=== PATIENT | male | born 1990 | race Caucasian/White ===

== ENCOUNTER 2016-06-25 13:03 | Emergency (ER) | payer OTHER ==
--- NOTE | 2016-06-25 13:05 | PDOC ---
History of Present Illness - General Chief Complaint: Pain, Acute Stated Complaint: RIGHT SHOULD PAIN Time Seen by Provider: 06/25/16 13:05 - History of Present Illness Initial Comments: 06/25/16 14:24 Chief complaint: Right shoulder pain History of present illness: Patient has chronic shoulder instability with frequent dislocations. He was throwing a ball yesterday and felt his shoulder, out of place. He has had persistent pain since then. Review of systems: Denies distal numbness tingling pain or weakness. Denies any other injuries. Past medical history: Recurrent shoulder dislocations, status post surgery several years ago. Otherwise healthy Social/family history reviewed and noncontributory Physical exam: Alert and oriented well-developed well-nourished no acute distress cooperative Afebrile, vital signs normal Right shoulder: There is no deformity noted. There is full range of motion, minimal pain at the extremes of abduction and extension. Pulses are full. No distal sensory or motor deficits. No localizing point tenderness. X-ray: Negative for fracture/dislocation. Hardware in place Impression: Shoulder sprain, possible transient dislocation with spontaneous relocation and subsequent inflammation. No fracture or dislocation at present Plan: Rest, ice, gentle range of motion exercises, avoid reaching backwards, anti-inflammatories, muscle relaxants, and orthopedic follow-up. Patient in no acute distress, pain, or other discomfort upon discharge to follow-up as directed. Fully ambulatory Past History - Past Medical History Allergies/Adverse Reactions: Allergies Allergy/AdvReac Type Severity Reaction Status Date / Time ketorolac tromethamine Allergy Verified 06/25/16 13:04 [From Toradol] Penicillins Allergy Verified 06/25/16 13:04 Home Medications: Ambulatory Orders Cyclobenzaprine HCl [Flexeril] 10 mg PO TID #15 tablet 06/25/16 Naproxen Sodium 275 mg PO BID #20 tablet 06/25/16 Trazodone HCl [Desyrel -] 150 mg PO HS 06/25/16 *DC/Admit/Observation/Transfer Diagnosis at time of Disposition: Shoulder sprain Qualifiers: Encounter type: initial encounter Shoulder sprain type: unspecified sprain Laterality: right Qualified Code(s): S43.401A - Unspecified sprain of right shoulder joint, initial encounter - Discharge Dispostion Disposition: HOME Condition at time of disposition: Stable Admit: No - Prescriptions Prescriptions: Cyclobenzaprine HCl [Flexeril] 10 mg PO TID #15 tablet Naproxen Sodium 275 mg PO BID #20 tablet - Referrals Referrals: Obi Tyson MD [Staff Physician] - 1 week - Patient Instructions Printed Discharge Instructions: DI for Shoulder Sprain
[2016-06-25 13:08] VITALS: BP 123/78; PULSE 80; TEMP 98.3; BMI 18.4
== END 2016-06-25 14:38 | disposition home or self-care (01) ==
LOC: FER 13:03
DX: S43.401A Unspecified sprain of right shoulder joint, initial encounter (principal); X58.XXXA Exposure to other specified factors, initial encounter; Y93.89 Activity, other specified; Y92.9 Unspecified place or not applicable
CPT/HCPCS: 73030-TC-RT; 99282-25

== ENCOUNTER 2016-12-17 11:06 | Emergency (ER) | payer OTHER ==
--- NOTE | 2016-12-17 11:13 | PDOC ---
Attending Attestation - Resident Resident Name: Don Blue - ED Attending Attestation I have performed the following: I have examined & evaluated the patient, The case was reviewed & discussed with the resident, I agree w/resident's findings & plan, Exceptions are as noted (I agree with Dr. Blue's assessment & plan.) - HPI HPI: 12/17/16 15:26 Pt. is a 26 yo male, who presents to the ED s/p falling 10 feet off ladder and landing on his lumbar-sacral region, and hitting a tree post. Pt reports associated back pain and pain to the right shoulder with very limited ROM, although his right hand is neurovascularly intact. - Physicial Exam PE: 12/17/16 15:28 Pt appears anxious on exam and has marked tenderness to palpation in the lower lumbar region over the bony spine. No bruising, abrasions, or soft tissue swelling. Right shoulder has very limited ROM, so I suspect a dislocation or fracture. <Dann Skinner - Last Filed: 12/17/16 15:26> - Resident Resident Name: Don Blue - ED Attending Attestation I have performed the following: I have examined & evaluated the patient, The case was reviewed & discussed with the resident, I agree w/resident's findings & plan, Exceptions are as noted - Medical Decision Making 12/21/16 06:06 12/21/16 06:[address] Blue's plan <Phuc Rosen - Last Filed: 12/21/16 06:07>
[2016-12-17 11:17] VITALS: BP 133/85; PULSE 97; TEMP 98.3; BMI 19.8
--- NOTE | 2016-12-17 12:40 | PDOC ---
History of Present Illness - General Chief Complaint: Injury Stated Complaint: FELL OFF LADDER Time Seen by Provider: 12/17/16 11:12 History Source: Patient - History of Present Illness Initial Comments: 12/17/16 12:34 26M with pmh of right shoulder fracture and repair 15 years ago, present after fall ladder while cleaning gutter from 10 height of feet onto a flat 10cm diameter tree stump of about 10cm high above the ground and grass. Patient fell flat on his back with the stump hitting his lumbar area. Denies LOC or hitting his head but states that his right shoulder got externally rotated and is currently painful. Right arm is kept closed to the body with elbow flexed at 90 degrees. The patient complains mostly of point tenderness 10/10 over L4 region. After the fall, the patient got up and tried urinating but complained of dribbling and dysuria. 12/17/16 12:46 12/17/16 16:06 Past History - Past Medical History Allergies/Adverse Reactions: Allergies Allergy/AdvReac Type Severity Reaction Status Date / Time ketorolac tromethamine Allergy Verified 12/17/16 11:07 [From Toradol] Penicillins Allergy Verified 12/17/16 11:07 Home Medications: Ambulatory Orders Gabapentin 100 mg PO DAILY 12/17/16 Ondansetron HCl [Zofran] 4 mg PO PRN PRN #14 tablet 12/17/16 Oxycodone HCl/Acetaminophen [Percocet 5-325 mg Tablet] 1 tab PO Q6H #16 tablet MDD 4g 12/17/16 Other medical history: NERVE PAIN - Psycho/Social/Smoking Cessation Hx Anxiety: No Suicidal Ideation: No Smoking History: Never smoked Have you smoked in the past 12 months: No Information on smoking cessation initiated: No Hx Alcohol Use: No Drug/Substance Use Hx: No Substance Use Type: None Review of Systems - Review of Systems Able to Perform ROS?: Yes Constitutional: No: Chills, Diaphoresis HEENTM: No: Blurred Vision, Recent change in vision Respiratory: No: Cough, Shortness of Breath, Wheezing Cardiac (ROS): No: Chest Pain, Edema, Irregular Heart Rate, Lightheadedness, Palpitations ABD/GI: Yes: Nausea. No: Abdominal Distended Musculoskeletal: Yes: See HPI. No: Joint Swelling Integumentary: Yes: Bruising *Physical Exam - Vital Signs Last Vital Signs Temp Pulse Resp BP Pulse Ox 98.3 F 97 H 20 133/85 100 12/17/16 11:07 12/17/16 11:07 12/17/16 11:07 12/17/16 11:07 12/17/16 11:07 - Physical Exam General Appearance: Yes: Nourished, Appropriately Dressed, Mild Distress, Thin HEENT: positive: EOMI, MAYANK, Normal ENT Inspection Neck: positive: Trachea midline. negative: Tender Respiratory/Chest: positive: Lungs Clear, Normal Breath Sounds. negative: Chest Tender, Respiratory Distress Cardiovascular: positive: Regular Rhythm, Regular Rate, S1, S2 ED Treatment Course - RADIOLOGY Radiology Studies Ordered: Category Date Time Status ABDOMEN & PELVIS CT W/O CONTR [CT] Stat CT Scan 12/17/16 11:[address] W/O CONTRAST [CT] Stat CT Scan 12/17/16 11:31 Taken SHOULDER-RIGHT [RAD] Stat Radiology 12/17/16 11:31 Taken SPINE-LUMBAR ONLY [RAD] Stat Radiology 12/17/16 11:31 Taken - Medications Given in the ED: ED Medications Discontinued Medications Generic Name Dose Route Start Last Admin Trade Name Freq PRN Reason Stop Dose Admin Oxycodone/Acetaminophen 1 combo 12/17/16 11:35 12/17/16 12:01 Percocet 5/325 - PO 12/17/16 11:36 1 combo ONCE ONE Administration Medical Decision Making - Medical Decision Making 12/17/16 16:06 26M present after fall from ladder with R shoulder pain and lumbar pain. Right shoulder xray and CT shows humeral subluxation. Lumbar negative, no fracture labs and lytes negative. UA negative. Talked to Dr. Robison othopedic surgeon who advised sling and outpatient visit. pain control with percocet + zofran. pt given imaging cd's *DC/Admit/Observation/Transfer Diagnosis at time of Disposition: Subluxation of right shoulder joint - Discharge Dispostion Disposition: HOME Condition at time of disposition: Stable Admit: No - Prescriptions Prescriptions: Oxycodone HCl/Acetaminophen [Percocet 5-325 mg Tablet] 1 tab PO Q6H #16 tablet MDD 4g Ondansetron HCl [Zofran] 4 mg PO PRN PRN #14 tablet PRN Reason: Nausea - Patient Instructions Printed Discharge Instructions: DI for Shoulder Dislocation, DI for Shoulder Sprain - Post Discharge Activity Work/School Note: Back to Work
[2016-12-17] MEDS ORDERED: ONDANSETRON *ODT* 4 MG TABLET SL ONE (12:44)
[2016-12-17] MEDS ORDERED: ONDANSETRON *ODT* 4 MG TABLET ONE (13:12)
[2016-12-17 13:21] LABS: PH,URINE 5.5 (4.5-8); URINE APPEARANCE Clear; URINE BILIRUBIN Negative (NEGATIVE); URINE BLOOD Negative (NEGATIVE); URINE GLUCOSE (UA) Negative (NEGATIVE); URINE KETONE Negative (NEGATIVE); URINE LEUK ESTERASE Negative (NEGATIVE); URINE PROTEIN Negative (NEGATIVE); URINE UROBILINOGEN 0.2 (0.2-1.0)
[2016-12-17 13:23] LABS: URINE COLOR YELLOW
[2016-12-17 13:58] LABS: URINE NITRITE Positive (NEGATIVE)
[2016-12-17] MEDS ORDERED: ONDANSETRON 4 MG TABLET PO ONE (16:15)
== END 2016-12-17 16:35 | disposition home or self-care (01) ==
LOC: FER 11:06
DX: S43.001A Unspecified subluxation of right shoulder joint, initial encounter (principal); W17.89XA Other fall from one level to another, initial encounter; Y93.89 Activity, other specified; Y92.9 Unspecified place or not applicable; Z88.0 Allergy status to penicillin; Z88.6 Allergy status to analgesic agent
CPT/HCPCS: 72100-TC; 72131-TC; 73030-TC-RT; 73200-TC-RT; 74176-TC; 81003; 99282-25

== ENCOUNTER 2016-12-24 13:04 | Emergency (ER) | payer OTHER ==
[2016-12-24 13:07] VITALS: BP 153/95; PULSE 90; TEMP 98; BMI 19.8
[2016-12-24] MEDS ORDERED: ONDANSETRON 4 MG TABLET PO ONE (13:35)
--- NOTE | 2016-12-24 13:37 | PDOC ---
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 [place] overextended yesterday. Right- sided pain shoulder and mild hematoma over R triceps. Claims his friends tried to "put shoulder back into place" unsuccessfully. Additionally complains of nausea. Pain upon any movement of the right arm. Patient asking for narcotic. 12/24/16 14:59 Past History - Past Medical History Allergies/Adverse Reactions: Allergies Allergy/AdvReac Type Severity Reaction Status Date / Time ketorolac tromethamine Allergy Verified 12/24/16 13:07 [From Toradol] Penicillins Allergy Verified 12/24/16 13:07 Home Medications: Ambulatory Orders Gabapentin 100 mg PO DAILY 12/17/16 Ondansetron HCl [Zofran] 4 mg PO PRN PRN #14 tablet 12/17/16 Oxycodone HCl/Acetaminophen [Percocet 5-325 mg Tablet] 1 tab PO Q6H #16 tablet MDD 4g 12/17/16 - Psycho/Social/Smoking Cessation Hx Anxiety: No Suicidal Ideation: No Smoking History: Never smoked Have you smoked in the past 12 months: No Information on smoking cessation initiated: No Hx Alcohol Use: No Drug/Substance Use Hx: No Substance Use Type: None *Physical Exam - Vital Signs Last Vital Signs Temp Pulse Resp BP Pulse Ox 98 F 90 18 153/95 100 12/24/16 13:05 12/24/16 13:05 12/24/16 13:05 12/24/16 13:05 12/24/16 13:05 ED Treatment Course - RADIOLOGY Radiology Studies Ordered: Category Date Time Status SHOULDER-RIGHT [RAD] Stat Radiology 12/24/16 13:19 Ordered Medical Decision Making - Medical Decision Making 12/24/16 15:09 26M with chronic R shoulder subluxation and repairs comes to the ED complaining of pain in the R shoulder, requires pain management with "Tramadol". R shoulder X-ray: " Anterior subluxation of humeral head in relation to the glenoid fossa unchanged from December 17, 2016." Patient states to his Orthopedic surgeon seen years ago suggested fixing his shoulder with a fusion which the patient refuses because he wont be able to ever play hockey. Patient asked if he was able to play hockey now, to which the patient responded "no'. Dr. Lynch suggested the patient gets a second opinion at [facility]. After the patient was about to get discharged he asked for a Tramadol prescription. Confronted with his Confidential Drug Utilization Report from the Prescription Monitoring Program Registry, patient said "i know i should use narcotics that's why im doing rehab" I counseled the patient on the dangers of opoid addiction and that he should seek permanent treatment for his shoulder pain. Patient then lost his temper and got emotional saying "If you didn't want me to get addicted doctors shouldn't have prescribed so many narcotics for my shoulder when i first broke it. I don't need discharge papers i'm leaving. Patient then left the ED. 12/24/16 15:15 *DC/Admit/Observation/Transfer Diagnosis at time of Disposition: Recurrent subluxation of shoulder - Discharge Dispostion Disposition: ELOPED Admit: No - Patient Instructions Printed Discharge Instructions: DI for Shoulder Dislocation, DI for Opioid Addiction
[2016-12-24] MEDS ORDERED: ONDANSETRON *ODT* 4 MG TABLET ONE (13:40)
--- NOTE | 2016-12-24 14:52 | PDOC ---
Attending Attestation - Resident Resident Name: SuDon - ED Attending Attestation I have performed the following: I have examined & evaluated the patient, The case was reviewed & discussed with the resident, I agree w/resident's findings & plan, Exceptions are as noted - HPI HPI: 26 yo M history prior shoulder surgeries presents with R shoulder pain. He states that he fell onto the R arm while it was extended, now with shoulder pain. He has had multiple shoulder dislocations in the past, has required surgical fixation. He was seen in the ED a few weeks ago with similar symptoms. No weakness or numbness. - Physicial Exam PE: GENERAL: Awake, alert, and fully oriented, in no acute distress HEAD: No signs of trauma EYES: PERRLA, EOMI, sclera anicteric, conjunctiva clear ENT: Auricles normal inspection, hearing grossly normal, nares patent, oropharynx clear without exudates. Moist mucosa NECK: Normal ROM, supple, no lymphadenopathy, JVD, or masses EXTREMITIES: R shoulder with slight defect at the posterior glenohumeral joint. Remainder of joints with normal range of motion, no edema. No clubbing or cyanosis. No cords, erythema, or tenderness NEUROLOGICAL: Cranial nerves II through XII grossly intact. Normal speech, normal gait SKIN: Warm, Dry, normal turgor, no rashes or lesions noted. - Medical Decision Making XR obtained, c/w prior film. No acute dislocation. Recommended sling and outpatient ortho f/u.
== END 2016-12-24 15:13 | disposition left against medical advice (07) ==
LOC: JER 13:04
DX: M24.411 Recurrent dislocation, right shoulder (principal); Z88.0 Allergy status to penicillin; Z88.6 Allergy status to analgesic agent
CPT/HCPCS: 73030-TC-RT; 99282-25

== ENCOUNTER 2017-05-06 15:02 | Emergency (ER) | payer OTHER ==
[2017-05-06 15:08] VITALS: BP 143/102; PULSE 110; TEMP 98; BMI 19.8
--- NOTE | 2017-05-06 15:09 | PDOC ---
Rapid Medical Evaluation Time Seen by Provider: 05/06/17 15:03 Medical Evaluation: Allergies Allergy/AdvReac Type Severity Reaction Status Date / Time ketorolac tromethamine Allergy Verified 12/24/16 13:07 [From Toradol] Penicillins Allergy Verified 12/24/16 13:07 05/06/17 15:07 I have performed a brief in-person evaluation of this patient. This patient presents with a chief complaint of: right shoulder pain x 2 hours. States had an accident while skateboarding complaining of pain with movement of right arm. States numbness to right 2nd digit Pertinenet physical exam findings: unlabored breathing right arm slightly elongated, pain with movement of right arm I have ordered the following: xray of right arm This patient will proceed to the ED for further evaluation 05/06/17 15:07
[2017-05-06] MEDS ORDERED: SODIUM CHLORIDE 1,000 ML IV ONE (16:02)
[2017-05-06] MEDS ORDERED: ACETAMINOPHEN 500 MG TABLET (FP) PO ONE (16:20)
[2017-05-06] MEDS ORDERED: ACETAMINOPHEN 325 MG TABLET (FP) ONE (16:28)
--- NOTE | 2017-05-06 16:34 | PDOC ---
Attending Attestation - Resident Resident Name: Jose Peterson - ED Attending Attestation I have performed the following: I have examined & evaluated the patient, The case was reviewed & discussed with the resident, I agree w/resident's findings & plan, Exceptions are as noted - HPI HPI: 05/06/17 16:25 27-year-old male with history of anxiety presents with shoulder injury while playing hockey. Patient states he fell on the hockey rink, reports another players skate struck his right shoulder causing a laceration and injury, presents for evaluation. Has history of right shoulder surgeries with chronic anterior subluxation per prior reports, denies any sensory deficit but reports some difficulty ranging his right shoulder since the injury. Denies any other injury. Initially triaged to fast track for injury/laceration but then noted gross hematuris in bathroom, so brought to main ED. Pt states he was "checked into a board" during the game but denies any other fall/injury. Reports h/o UTI/cystitis with hematuria, no f/c/flank pain. Multiple questions asked to clarify the mechanism of injury. Adamant that this was a hockey injury, that this was not assault or stab. - Physicial Exam PE: 05/06/17 16:30 Vital signs within normal limits, mild tachycardia General: Patient is alert and in no acute distress. Speech is clear and appropriate. Head: Atraumatic and nontender. HEENT: Pupils are equal round and reactive to light, extraocular movements are intact. No facial deformity/tenderness, no septal hematoma. The oropharynx is clear. Neck: The trachea is midline, there is no stridor. There is no midline cervical spine tenderness, full range of motion of neck. Chest: Nontender, no ecchymosis or abrasions. Heart: S1-S2, regular rate and rhythm. No murmurs. Lungs: Clear to auscultation bilaterally. Symmetric chest rise. Abdomen: Soft/nontender/nondistended. ? mild LUQ discomfort, no CVAT. Bowel sounds are normal. There is no abdominal or flank ecchymosis. No urethral injury or discharge or bleeding. Back/Pelvis: There is no midline spine tenderness or step-off. Pelvis is stable and nontender. Extremities: Chronic R shoulder deformity but able to lay on it and range actively. NVI distally, sensation intact over deltoid. There is no other extremity deformity or joint swelling. No focal bony tenderness throughout. 2+ distal pulses throughout. Neuro: Alert and oriented x3. Cranial nerves II through XII are intact. 5 out of 5 motor strength x4 extremities. [id number] is intact. No pronator drift. Gait is stable. Skin: R shoulder laceration x2. Linear x6cm, one is deep through dermis without muscle or tendon injury. Second is more superficial to dermis. No active bleeding. Superficial and healing 1st degree burn to neck x5mm and chest x6cm. Psych: Slightly pressured speech, Affect is otherwise appropriate. No SI/HI/AH/ VH. - Critical Care Time Total Critical Care Time: 30 Critical Care Statement: The care of this patient involved high complexity decision making to prevent further life threatening deterioration of the patient 's condition and/or to evaluate & treat vital organ system(s) failure or risk of failure. - Medical Decision Making 05/06/17 16:34 Patient seen and evaluated with the resident. I agree with the overall evaluation, assessment, and management with the following summary of visit: 27-year-old male with history of anxiety and right shoulder dislocation presents with laceration to right shoulder and gross hematuria in [facility]. The patient's history is inconsistent, now reporting that the laceration was yesterday, now reporting that he does have a history of gross hematuria secondary to "foreign body" in his urethra that needed to be extracted, requesting Dilaudid. Presentation is concerning given his inconsistent history and opiate requests. full trauma workup ordered but history is less concerning at this time shoulder xray with unchanged anterior subluxation, no fracture send UA, pt currently refusing labs/imaging until he receives dilaudid lac repair, update dt reassess
[2017-05-06 16:52] LABS: BASO % 0.8 % (0-2.0); EOS % 1.5 % (0-4.5); MCH 29.4 pg (25.7-33.7); MCHC 34.2 g/dl (32.0-35.9); MEAN CELL VOLUME 86.1 fl (80-96); MEAN PLT VOLUME 8.9 fl (7.5-11.1); NEUT % 64.8 % (42.8-82.8); PLATELET COUNT 252 K/MM3 (134-434); RDW 12.9 % (11.9-15.9); WHITE BLOOD COUNT 7.9 K/mm3 (4.0-10.0)
[2017-05-06] MEDS ORDERED: HYDROmorphone HCL CARPU-JECT 1 MG/1 ML DISP.SYRIN IVPUSH ONE (17:07)
[2017-05-06 17:08] LABS: INR 1.17 (0.82-1.09); PROTHROMBIN TIME (PATIENT) 13.2 SEC (9.98-11.88)
[2017-05-06] MEDS ORDERED: HYDROmorphone HCL CARPU-JECT 1 MG/1 ML DISP.SYRIN ONE (17:09)
[2017-05-06 17:20] LABS: URINE APPEARANCE SLCLOUDY; URINE BILIRUBIN NEGATIVE (NEGATIVE); URINE BLOOD 3+ (NEGATIVE); URINE COLOR RED; URINE GLUCOSE (UA) 1+ (NEGATIVE); URINE KETONE NEGATIVE (NEGATIVE); URINE LEUK ESTERASE NEGATIVE (NEGATIVE); URINE NITRITE NEGATIVE (NEGATIVE); URINE UROBILINOGEN NEGATIVE mg/dL (0.2-1.0)
[2017-05-06 17:21] LABS: URINE PROTEIN 2+ (NEGATIVE)
[2017-05-06 17:26] LABS: URINE RBC 37 /hpf (0-3)
[2017-05-06 17:45] LABS: ALBUMIN 4.6 g/dl (3.4-5.0); ANION GAP 7 (8-16); CALCIUM 9.3 mg/dL (8.5-10.1); CO2 24 mmol/L (21-32); GLUCOSE,RANDOM 104 mg/dL (74-106); MAGNESIUM 2.5 mg/dL (1.8-2.4)
[2017-05-06 17:51] LABS: ALK PHOS 121 U/L (45-117); BILIRUBIN,TOTAL 0.4 mg/dL (0.2-1.0); CREATININE 0.8 mg/dL (0.7-1.3); SGOT/AST 17 U/L (15-37); SGPT/ALT 27 U/L (12-78)
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
--- NOTE | 2017-05-06 19:19 | PDOC ---
*Physical Exam - Vital Signs Last Vital Signs Temp Pulse Resp BP Pulse Ox 98 F 110 H 19 143/102 99 05/06/17 15:05 05/06/17 15:05 05/06/17 15:05 05/06/17 15:05 05/06/17 15:05 ED Treatment Course - LABORATORY CBC & Chemistry Diagram: 05/06/17 16:30 05/06/17 16:30 - ADDITIONAL ORDERS Additional order review: Laboratory Results 05/06/17 05/06/17 05/06/17 16:30 16:30 16:30 PT with INR INR Sodium 138 Potassium 3.9 Chloride 107 Carbon Dioxide 24 Anion Gap 7 L BUN 22 H Creatinine 0.8 Creat Clearance w eGFR > 60 Random Glucose 104 Lactic Acid 0.5 Calcium 9.3 Magnesium 2.5 H Total Bilirubin 0.4 AST 17 ALT 27 Alkaline Phosphatase 121 H Total Protein 8.0 Albumin 4.6 Lipase 577 H Urine Color Urine Appearance Urine pH Ur Specific [place] Urine Protein Urine Glucose (UA) Urine Ketones Urine Blood Urine Nitrite Urine Bilirubin Urine Urobilinogen Urine WBC (Auto) Urine RBC (Auto) Blood Type B POSITIVE Antibody Screen Negative 05/06/17 05/06/17 16:30 16:18 PT with INR 13.20 H INR 1.17 H Sodium Potassium Chloride Carbon Dioxide Anion Gap BUN Creatinine Creat Clearance w eGFR Random Glucose Lactic Acid Calcium Magnesium Total Bilirubin AST ALT Alkaline Phosphatase Total Protein Albumin Lipase Urine Color Red Urine Appearance Slcloudy Urine pH 7.0 Ur Specific [place] 1.023 Urine Protein 2+ H Urine Glucose (UA) 1+ H Urine Ketones Negative Urine Blood 3+ H Urine Nitrite Negative Urine Bilirubin Negative Urine Urobilinogen Negative Urine WBC (Auto) None Urine RBC (Auto) 37 Blood Type Antibody Screen 05/06/17 16:30 RBC 4.84 MCV 86.1 MCHC 34.2 RDW 12.9 MPV 8.9 Neutrophils % 64.8 Lymphocytes % 27.3 Monocytes % 5.6 Eosinophils % 1.5 Basophils % 0.8 - Medications Given in the ED: ED Medications Discontinued Medications Generic Name Dose Route Start Last Admin Trade Name Freq PRN Reason Stop Dose Admin Acetaminophen 1,000 mg 05/06/17 16:20 05/06/17 16:26 Tylenol - PO 05/06/17 16:21 1,000 mg ONCE ONE Administration Hydromorphone HCl 1 mg 05/06/17 17:07 05/06/17 17:08 Dilaudid Injection - IVPUSH 05/06/17 17:08 1 mg ONCE ONE Administration Sodium Chloride 1,000 mls @ 1,000 mls/hr 05/06/17 16:02 05/06/17 16:26 Normal Saline - IV 05/06/17 17:01 1,000 mls/hr ONCE ONE Administration Medical Decision Making - Medical Decision Making 05/06/17 19:15 Patient was signed out to me by day team, Dr. Peterson. The patient is a 27M with a PMH of shoulder dislocations requiring surgery who presents with a R shoulder dislocation and laceration. CTAP is negative for renal pathology. UA shows gross blood with no infectious etiology. Pt advised to f/u with urology (Dr. Russell) for his hematuria. *DC/Admit/Observation/Transfer Diagnosis at time of Disposition: Shoulder subluxation, right Qualifiers: Encounter type: sequela Qualified Code(s): S43.001S - Unspecified subluxation of right shoulder joint, sequela Recurrent subluxation of shoulder Qualifiers: Laterality: right Qualified Code(s): M24.411 - Recurrent dislocation, right shoulder - Discharge Dispostion Disposition: HOME Condition at time of disposition: Stable - Referrals Referrals: Wero Robles MD., MD [Staff Physician] - - Patient Instructions Printed Discharge Instructions: DI for Laceration Repair Additional Instructions: Please be sure to follow up with your Urologist (Dr. Robles) within 3 days. Please make sure you see your doctor to have your stitches removed within 1 week. Keep your wound clean and dry. Please take all your prescription medications as directed. Please return to the Emergency department if you develop new symptoms or if your symptoms get worse. - Post Discharge Activity
[2017-05-06] MEDS ORDERED: traMADol HCL 50 MG TABLET PO ONE (19:51)
--- NOTE | 2017-05-06 20:05 | PDOC ---
*Physical Exam - Vital Signs Last Vital Signs Temp Pulse Resp BP Pulse Ox 98 F 110 H 19 143/102 99 05/06/17 15:05 05/06/17 15:05 05/06/17 15:05 05/06/17 15:05 05/06/17 15:05 ED Treatment Course - LABORATORY CBC & Chemistry Diagram: 05/06/17 16:30 05/06/17 16:30 - ADDITIONAL ORDERS Additional order review: Laboratory Results 05/06/17 05/06/17 05/06/17 16:30 16:30 16:30 PT with INR INR Sodium 138 Potassium 3.9 Chloride 107 Carbon Dioxide 24 Anion Gap 7 L BUN 22 H Creatinine 0.8 Creat Clearance w eGFR > 60 Random Glucose 104 Lactic Acid 0.5 Calcium 9.3 Magnesium 2.5 H Total Bilirubin 0.4 AST 17 ALT 27 Alkaline Phosphatase 121 H Total Protein 8.0 Albumin 4.6 Lipase 577 H Urine Color Urine Appearance Urine pH Ur Specific [place] Urine Protein Urine Glucose (UA) Urine Ketones Urine Blood Urine Nitrite Urine Bilirubin Urine Urobilinogen Urine WBC (Auto) Urine RBC (Auto) Blood Type B POSITIVE Antibody Screen Negative 05/06/17 05/06/17 16:30 16:18 PT with INR 13.20 H INR 1.17 H Sodium Potassium Chloride Carbon Dioxide Anion Gap BUN Creatinine Creat Clearance w eGFR Random Glucose Lactic Acid Calcium Magnesium Total Bilirubin AST ALT Alkaline Phosphatase Total Protein Albumin Lipase Urine Color Red Urine Appearance Slcloudy Urine pH 7.0 Ur Specific [place] 1.023 Urine Protein 2+ H Urine Glucose (UA) 1+ H Urine Ketones Negative Urine Blood 3+ H Urine Nitrite Negative Urine Bilirubin Negative Urine Urobilinogen Negative Urine WBC (Auto) None Urine RBC (Auto) 37 Blood Type Antibody Screen 05/06/17 16:30 RBC 4.84 MCV 86.1 MCHC 34.2 RDW 12.9 MPV 8.9 Neutrophils % 64.8 Lymphocytes % 27.3 Monocytes % 5.6 Eosinophils % 1.5 Basophils % 0.8 - Medications Given in the ED: ED Medications Discontinued Medications Generic Name Dose Route Start Last Admin Trade Name Freq PRN Reason Stop Dose Admin Acetaminophen 1,000 mg 05/06/17 16:20 05/06/17 16:26 Tylenol - PO 05/06/17 16:21 1,000 mg ONCE ONE Administration Hydromorphone HCl 1 mg 05/06/17 17:07 05/06/17 17:08 Dilaudid Injection - IVPUSH 05/06/17 17:08 1 mg ONCE ONE Administration Sodium Chloride 1,000 mls @ 1,000 mls/hr 05/06/17 16:02 05/06/17 16:26 Normal Saline - IV 05/06/17 17:01 1,000 mls/hr ONCE ONE Administration *DC/Admit/Observation/Transfer Diagnosis at time of Disposition: Shoulder subluxation, right Qualifiers: Encounter type: initial encounter Qualified Code(s): S43.001A - Unspecified subluxation of right shoulder joint, initial encounter Recurrent subluxation of shoulder Qualifiers: Laterality: right Qualified Code(s): M24.411 - Recurrent dislocation, right shoulder Hematuria Qualifiers: Hematuria type: gross Qualified Code(s): R31.0 - Gross hematuria - Discharge Dispostion Disposition: HOME Condition at time of disposition: Stable - Referrals Referrals: Wero Robles MD., MD [Staff Physician] - - Patient Instructions Printed Discharge Instructions: DI for Laceration Repair, DI for Hematuria, DI for Shoulder Pain Additional Instructions: Please be sure to follow up with your Urologist (Dr. Robles) within 3 days. Please make sure you see your doctor to have your stitches removed within 1 week. Keep your wound clean and dry. Please take all your prescription medications as directed. Please return to the Emergency department if you develop new symptoms or if your symptoms get worse. - Post Discharge Activity
[2017-05-06] MEDS ORDERED: traMADol HCL 50 MG TABLET ONE (20:12)
[2017-05-06 20:57] LABS: URINE LEUK ESTERASE TRACE (NEGATIVE)
== END 2017-05-06 20:15 | disposition home or self-care (01) ==
LOC: JER 15:02 → JERFT 15:02 → JER 20:15
PROC: 0HQCXZZ Repair Left Upper Arm Skin, External Approach (ICD-10-PCS; principal; 2017-05-06)
DX: S43.004A Unspecified dislocation of right shoulder joint, initial encounter (principal); S43.001A Unspecified subluxation of right shoulder joint, initial encounter; M24.411 Recurrent dislocation, right shoulder; R31.0 Gross hematuria; W18.39XA Other fall on same level, initial encounter; Y93.22 Activity, ice hockey; Y92.330 Ice skating rink (indoor) (outdoor) as the place of occurrence of the external cause
CPT/HCPCS: 12002; 36415; 73030-TC-RT; 74177-TC; 80053; 81003; 81015; 83605; 83690; 83735; 85025; 85610; 86850; 86900; 86901; 96361; 96374; 99284-25

== ENCOUNTER 2017-08-20 16:20 | Emergency (ER) | payer OTHER ==
[2017-08-20 16:39] VITALS: PULSE 98; TEMP 98.1; BMI 21.7
[2017-08-20 16:43] VITALS: BP 117/77
[2017-08-20] MEDS ORDERED: ACETAMINOPHEN 325 MG TABLET (FP) ONE (17:06)
[2017-08-20] MEDS ORDERED: traMADol HCL 50 MG TABLET ONE (17:13)
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
[2017-08-20] MEDS ORDERED: traMADol HCL 50 MG TABLET PO ONE (17:18)
== END 2017-08-20 18:00 | disposition home or self-care (01) ==
LOC: FER 16:20
DX: S43.401A Unspecified sprain of right shoulder joint, initial encounter (principal); S81.812A Laceration without foreign body, left lower leg, initial encounter; V28.4XXA Motorcycle driver injured in noncollision transport accident in traffic accident, initial encounter; Y93.89 Activity, other specified; Y92.9 Unspecified place or not applicable
CPT/HCPCS: 73030-TC-RT-FY; 73560-TC-LT-FY; 99283-25

== ENCOUNTER 2017-08-20 19:33 | Emergency (ER) | payer OTHER ==
[2017-08-20 19:43] VITALS: BP 140/94; PULSE 112; TEMP 97.9; BMI 21.7
--- NOTE | 2017-08-20 19:46 | PDOC ---
Rapid Medical Evaluation Time Seen by Provider: 08/20/17 19:41 Medical Evaluation: Allergies Allergy/AdvReac Type Severity Reaction Status Date / Time acetaminophen Allergy Verified 08/20/17 19:40 ketorolac tromethamine Allergy Hives Verified 08/20/17 19:40 [From Toradol] NSAIDS (Non-Steroidal Allergy Hives Verified 08/20/17 19:40 Anti-Inflamma Penicillins Allergy Verified 08/20/17 19:40 0I have performed a brief in-person evaluation of this patient. The patient presents with a chief complaint of injury to left leg and right side of back 1-2 hours ago when he fell from a ladder Complaining of feeling lightheaded, having pain in right shoulder and pain in left lower leg. Pertinent physical exam finding are NAD lungs: clear bilaterally ext: right shoulder unable to abduct or adduct left lower leg open wound to lower leg : + right cva tenderness I have ordered the following: xray of right shoulder, and left lower leg The patient will proceed to the ED for further evaluation. 08/20/17 19:48
[2017-08-20] MEDS ORDERED: morphine CARPU-JECT 4 MG/1 ML DISP.SYRIN IVPUSH ONE (20:13)
[2017-08-20 20:20] LABS: BASO % 0.7 % (0-2.0); EOS % 2.2 % (0-4.5); HEMATOCRIT 33.8 % (35.4-49); HEMOGLOBIN 11.8 GM/dL (11.7-16.9); LYMPH % 24.4 % (8-40); MCHC 35.1 g/dl (32.0-35.9); MEAN CELL VOLUME 85.5 fl (80-96); MEAN PLT VOLUME 8.4 fl (7.5-11.1); MONO % 5.1 % (3.8-10.2); NEUT % 67.6 % (42.8-82.8); PLATELET COUNT 237 K/MM3 (134-434); RBC 3.95 M/mm3 (4.00-5.60); RDW 14.7 % (11.9-15.9); WHITE BLOOD COUNT 8.3 K/mm3 (4.0-10.0)
[2017-08-20] MEDS ORDERED: morphine SULFATE 4 MG/ML VIAL ONE (20:20)
[2017-08-20 20:53] LABS: INR 1.16 (0.82-1.09); PROTHROMBIN TIME (PATIENT) 13.1 SEC (9.98-11.88)
[2017-08-20 20:55] LABS: ACTIVATED PTT 25.8 SECONDS (26.9-34.4)
[2017-08-20 20:58] LABS: ALBUMIN 4.4 g/dl (3.4-5.0); ALK PHOS 113 U/L (45-117); ANION GAP 9 (8-16); BILIRUBIN,TOTAL 0.2 mg/dL (0.2-1.0); BLOOD UREA NITROGEN 21 mg/dL (7-18); CALCIUM 9.2 mg/dL (8.5-10.1); CHLORIDE 107 mmol/L (98-107); CO2 25 mmol/L (21-32); CREATININE 0.7 mg/dL (0.7-1.3); GLUCOSE,RANDOM 90 mg/dL (74-106); POTASSIUM 3.5 mmol/L (3.5-5.1); SGOT/AST 15 U/L (15-37); SGPT/ALT 16 U/L (12-78); SODIUM 141 mmol/L (136-145); TOT PROT 7.8 g/dl (6.4-8.2)
--- NOTE | 2017-08-20 22:08 | PDOC ---
History of Present Illness - General History Source: Patient Exam Limitations: No Limitations - History of Present Illness Initial Comments: 08/20/17 22:10 The patient is a 27 year old male with significant PMH of shoulder dislocations and anxiety who presents to the emergency department complaining of left salgado laceration, right arm, right flank, and neck pain approximately a half an hour ago. The patient reports falling 15-20 ft from a ladder while trying to change a light bulb. The patient reports previous laceration to left salgado s/p trauma from playing ice hockey ( occurred 2 weeks ago) in which he received fidelina that were removed approximately a week ago. Today at presentation, the previously stapled laceration is open with no active bleeding. Denies taking medication for pain. At presentation, the patient is calm and able to answer questions. Patient notes that he recently finished antibiotics (clindamycin). The patient denies chest pain, shortness of breath, headache, and dizziness. Denies fevers, chills, nausea, vomiting, diarrhea, and constipation. Denies dysuria, frequency, urgency, and hematuria. Allergies: Acetaminophen, Ketorolac tromethamine, and Penicillins. Past surgical history: L-salgado lac. repair. Shoulder dislocation. Social history: No reported cigarette, alcohol, or drug use. <Jimmie Mark - Last Filed: 08/20/17 22:09> <Abi Walter - Last Filed: 08/21/17 01:09> <All Tubbs - Last Filed: 08/21/17 01:36> - General Stated Complaint: INJURY TO RIGHT LEG Time Seen by Provider: 08/20/17 19:41 Past History <Jimmie Mark - Last Filed: 08/20/17 22:09> - Past Medical History COPD: No - Immunization History Immunization Up to Date: Yes - Suicide/Smoking/Psychosocial Hx Smoking History: Never smoked Have you smoked in the past 12 months: No Hx Alcohol Use: No Drug/Substance Use Hx: No Substance Use Type: None <Abi Walter - Last Filed: 08/21/17 01:09> <All Tubbs - Last Filed: 08/21/17 01:36> - Past Medical History Allergies/Adverse Reactions: Allergies Allergy/AdvReac Type Severity Reaction Status Date / Time acetaminophen Allergy Verified 08/20/17 19:40 ketorolac tromethamine Allergy Hives Verified 08/20/17 19:40 [From Toradol] NSAIDS (Non-Steroidal Allergy Hives Verified 08/20/17 19:40 Anti-Inflamma Penicillins Allergy Verified 08/20/17 19:40 Home Medications: Ambulatory Orders Sertraline HCl [Zoloft] 100 mg PO DAILY 05/06/17 Sulfamethoxazole/Trimethoprim [Bactrim Ds -] 1 tab PO BID #20 tablet 08/21/17 Review of Systems - Review of Systems Able to Perform ROS?: Yes Comments:: 08/20/17 22:10 CONSTITUTIONAL: Absent: fever, chills, diaphoresis, generalized weakness, malaise, loss of appetite HEENT: Absent: rhinorrhea, nasal congestion, throat pain, throat swelling, difficulty swallowing, mouth swelling, ear pain, eye pain, visual Changes CARDIOVASCULAR: Absent: chest pain, syncope, palpitations, irregular heart rate, lightheadedness , peripheral edema RESPIRATORY: Absent: cough, shortness of breath, dyspnea with exertion, orthopnea, wheezing, stridor, hemoptysis GASTROINTESTINAL: Absent: abdominal pain, abdominal distension, nausea, vomiting, diarrhea, constipation, melena, hematochezia GENITOURINARY: +right flank pain. Absent: dysuria, frequency, urgency, hesitancy, hematuria, genital pain MUSCULOSKELETAL: Absent: myalgia, arthralgia, joint swelling EXTREMITIES: +Large left Salgado Laceration. SKIN: Absent: rash, itching, pallor HEMATOLOGIC/IMMUNOLOGIC: Absent: easy bleeding, easy bruising, lymphadenopathy, frequent infections ENDOCRINE: Absent: unexplained weight gain, unexplained weight loss, heat intolerance, cold intolerance NEUROLOGIC: Absent: headache, focal weakness or paresthesias, dizziness, unsteady gait, seizure, mental status changes, bladder or bowel incontinence PSYCHIATRIC: +Anxiety. Absent: depression, suicidal or homicidal ideation, hallucinations. <Jimmie Mark - Last Filed: 08/20/17 22:09> *Physical Exam - Vital Signs Last Vital Signs Temp Pulse Resp BP Pulse Ox 97.9 F 112 H 18 140/94 100 08/20/17 19:42 08/20/17 19:42 08/20/17 19:42 08/20/17 19:42 04/03/18 19:42 - Physical Exam Comments: 08/20/17 22:11 GENERAL: Well developed, well nourished. Awake and alert. No acute distress. HEENT: Normocephalic, atraumatic. PERRLA, EOMI. No conjunctival pallor. Sclera are non- icteric. Moist mucous membranes. Oropharynx is clear. NECK: Supple. Full ROM. No JVD. Carotid pulses 2+ and symmetric, without bruits. No thyromegaly. No lymphadenopathy. CARDIOVASCULAR: Regular rate and rhythm. No murmurs, rubs, or gallops. Distal pulses are 2+ and symmetric. PULMONARY: No evidence of respiratory distress. Lungs clear to auscultation bilaterally. No wheezing, rales or rhonchi. ABDOMINAL: Soft. Non-tender. Non-distended. No rebound or guarding. No organomegaly. Normoactive bowel sounds. MUSCULOSKELETAL +Tenderness to right lower back. Normal range of motion at all joints. No bony deformities. EXTREMITIES: +10cm left salgado healing old laceration, secondary intention. No cyanosis. No clubbing. No edema. No calf tenderness. SKIN: +eczema of antecubital on RE. +chronic plaque like infection chest. Warm and dry. NEUROLOGICAL: Alert, awake, appropriate. Cranial nerves 2-12 intact. No deficits to light touch and temperature in face, upper extremities and lower extremities. No motor deficits in the in face, upper extremities and lower extremities. Normoreflexic in the upper and lower extremities. Normal speech. Toes are down- going bilaterally. PSYCHIATRIC: Cooperative. Good eye contact. Appropriate mood and affect. <Jimmie Mark - Last Filed: 08/20/17 22:09> - Vital Signs Last Vital Signs Temp Pulse Resp BP Pulse Ox 97.9 F 112 H 18 140/94 100 08/20/17 19:42 08/20/17 19:42 08/20/17 19:42 08/20/17 19:42 08/20/17 19:42 <Abi Walter - Last Filed: 08/21/17 01:09> - Vital Signs Last Vital Signs Temp Pulse Resp BP Pulse Ox 97.9 F 112 H 18 140/94 100 08/20/17 19:42 08/20/17 19:42 08/20/17 19:42 08/20/17 19:42 08/20/17 19:42 <All Tubbs - Last Filed: 08/21/17 01:36> ED Treatment Course - LABORATORY CBC & Chemistry Diagram: 08/20/17 20:10 08/20/17 20:10 - ADDITIONAL ORDERS Additional order review: Laboratory Results 08/20/17 08/20/17 08/20/17 20:10 20:10 20:10 PT with INR 13.10 H INR 1.16 H PTT (Actin FS) 25.8 L Sodium 141 Potassium 3.5 Chloride 107 Carbon Dioxide 25 Anion Gap 9 BUN 21 H Creatinine 0.7 Creat Clearance w eGFR > 60 Random Glucose 90 Calcium 9.2 Total Bilirubin 0.2 D AST 15 ALT 16 D Alkaline Phosphatase 113 Total Protein 7.8 Albumin 4.4 Blood Type B POSITIVE Antibody Screen Negative 08/20/17 20:10 RBC 3.95 L MCV 85.5 MCHC 35.1 RDW 14.7 D MPV 8.4 Neutrophils % 67.6 Lymphocytes % 24.4 Monocytes % 5.1 Eosinophils % 2.2 Basophils % 0.7 - Medications Given in the ED: ED Medications Discontinued Medications Generic Name Dose Route Start Last Admin Trade Name Freq PRN Reason Stop Dose Admin Morphine Sulfate 4 mg 08/20/17 20:13 08/20/17 20:23 Morphine Injection - IVPUSH 08/20/17 20:14 4 mg ONCE ONE Administration <Jimmie Mark - Last Filed: 08/20/17 22:09> - LABORATORY CBC & Chemistry Diagram: 08/20/17 20:10 08/20/17 20:10 - ADDITIONAL ORDERS Additional order review: Laboratory Results 08/20/17 08/20/17 08/20/17 20:10 20:10 20:10 PT with INR 13.10 H INR 1.16 H PTT (Actin FS) 25.8 L Sodium 141 Potassium 3.5 Chloride 107 Carbon Dioxide 25 Anion Gap 9 BUN 21 H Creatinine 0.7 Creat Clearance w eGFR > 60 Random Glucose 90 Calcium 9.2 Total Bilirubin 0.2 D AST 15 ALT 16 D Alkaline Phosphatase 113 Total Protein 7.8 Albumin 4.4 Blood Type B POSITIVE Antibody Screen Negative 08/20/17 20:10 RBC 3.95 L MCV 85.5 MCHC 35.1 RDW 14.7 D MPV 8.4 Neutrophils % 67.6 Lymphocytes % 24.4 Monocytes % 5.1 Eosinophils % 2.2 Basophils % 0.7 - RADIOLOGY Radiology Studies Ordered: Category Date Time Status CERVICAL SPINE CT W/O CONTR [CT] Stat CT Scan 08/20/17 20:[address] WITHOUT CONTRAST [CT] Stat CT Scan 08/20/17 20:50 Completed - Medications Given in the ED: ED Medications Discontinued Medications Generic Name Dose Route Start Last Admin Trade Name Davidq PRN Reason Stop Dose Admin Morphine Sulfate 4 mg 08/20/17 20:13 08/20/17 20:23 Morphine Injection - IVPUSH 08/20/17 20:14 4 mg ONCE ONE Administration <Abi Walter - Last Filed: 08/21/17 01:09> - LABORATORY CBC & Chemistry Diagram: 08/20/17 20:10 08/20/17 20:10 - ADDITIONAL ORDERS Additional order review: Laboratory Results 08/20/17 08/20/17 08/20/17 22:16 20:10 20:10 PT with INR INR PTT (Actin FS) Sodium 141 Potassium 3.5 Chloride 107 Carbon Dioxide 25 Anion Gap 9 BUN 21 H Creatinine 0.7 Creat Clearance w eGFR > 60 Random Glucose 90 Calcium 9.2 Total Bilirubin 0.2 D AST 15 ALT 16 D Alkaline Phosphatase 113 Total Protein 7.8 Albumin 4.4 Urine Color Red Urine Appearance Slcloudy Urine pH 7.0 Ur Specific [place] 1.009 Urine Protein 2+ H Urine Glucose (UA) 1+ H Urine Ketones Trace H Urine Blood 2+ H Urine Nitrite Positive Urine Bilirubin Negative Urine Urobilinogen 4.0 e.u/dl Ur Leukocyte Esterase Negative Urine WBC (Auto) 4 Urine RBC (Auto) 276 Ur Epithelial Cells Moderate Blood Type B POSITIVE Antibody Screen Negative 08/20/17 20:10 PT with INR 13.10 H INR 1.16 H PTT (Actin FS) 25.8 L Sodium Potassium Chloride Carbon Dioxide Anion Gap BUN Creatinine Creat Clearance w eGFR Random Glucose Calcium Total Bilirubin AST ALT Alkaline Phosphatase Total Protein Albumin Urine Color Urine Appearance Urine pH Ur Specific [place] Urine Protein Urine Glucose (UA) Urine Ketones Urine Blood Urine Nitrite Urine Bilirubin Urine Urobilinogen Ur Leukocyte Esterase Urine WBC (Auto) Urine RBC (Auto) Ur Epithelial Cells Blood Type Antibody Screen 08/20/17 20:10 RBC 3.95 L MCV 85.5 MCHC 35.1 RDW 14.7 D MPV 8.4 Neutrophils % 67.6 Lymphocytes % 24.4 Monocytes % 5.1 Eosinophils % 2.2 Basophils % 0.7 - Medications Given in the ED: ED Medications Discontinued Medications Generic Name Dose Route Start Last Admin Trade Name Harsha PRN Reason Stop Dose Admin Morphine Sulfate 4 mg 08/20/17 20:13 08/20/17 20:23 Morphine Injection - IVPUSH 08/20/17 20:14 4 mg ONCE ONE Administration Oxycodone/Acetaminophen 1 combo 08/20/17 22:09 08/20/17 22:11 Percocet 5/325 - PO 08/20/17 22:10 1 combo ONCE ONE Administration <All Tubbs - Last Filed: 08/21/17 01:36> Medical Decision Making - Medical Decision Making 08/21/17 01:25 The patient was seen in [place] ED earlier today complaining of left knee pain and multiple x-rays were taken. This was learned after the patient walked out of the ED after numerous attempts to inquire about narcotics. The patient walked, disgruntled and stated that he "Will take his high strength Pot". <All Tubbs - Last Filed: 08/21/17 01:36> *DC/Admit/Observation/Transfer - Attestations Scribe Attestion: 08/20/17 22:11 Documentation prepared by Jimmie Mark, acting as certified court/medical interpreter for Abi Walter MD. <Jimmie Mark - Last Filed: 08/20/17 22:09> <Abi Walter - Last Filed: 08/21/17 01:09> <All Tubbs - Last Filed: 08/21/17 01:36> Diagnosis at time of Disposition: Flank pain UTI (urinary tract infection) Qualifiers: Urinary tract infection type: site unspecified Hematuria presence: with hematuria Qualified Code(s): N39.0 - Urinary tract infection, site not specified Fall Qualifiers: Encounter type: subsequent encounter Qualified Code(s): W19.XXXD - Unspecified fall, subsequent encounter Wound of left lower extremity Qualifiers: Encounter type: subsequent encounter Qualified Code(s): S81.802D - Unspecified open wound, left lower leg, subsequent encounter - Discharge Dispostion Disposition: HOME Condition at time of disposition: Stable - Prescriptions Prescriptions: Sulfamethoxazole/Trimethoprim [Bactrim Ds -] 1 tab PO BID #20 tablet - Referrals Referrals: Jose Angel Roger MD [Staff Physician] - - Patient Instructions Printed Discharge Instructions: DI for Wound Dehiscence, DI for Urinary Tract Infection (UTI) Additional Instructions: IT IS VERY IMPORTANT TO KEEP YOUR APPOINTMENT AT THE WOUND CLINIC APPLY THE ANTIBIOTIC CREAM TO YOUR LEG WOUND STORE RECEIVING SPECIALIST THE BACTRIM FOR YOUR UTI FOLLOW UP WITH A UROLOGIST
[2017-08-20 22:31] LABS: URINE APPEARANCE SLCLOUDY; URINE BILIRUBIN NEGATIVE (<2.0 mg/dL); URINE BLOOD 2+ (NEGATIVE); URINE COLOR RED; URINE GLUCOSE (UA) 1+ (NEGATIVE); URINE KETONE TRACE (NEGATIVE); URINE LEUK ESTERASE NEGATIVE (NEGATIVE); URINE NITRITE POSITIVE (NEGATIVE); URINE UROBILINOGEN 4.0 E.U/dl mg/dL (0.2-1.0)
[2017-08-20 22:37] LABS: URINE PROTEIN 2+ (NEGATIVE)
[2017-08-21 01:01] LABS: EPI CELLS MODERATE /HPF (FEW)
--- NOTE | 2017-08-27 07:59 | PDOC ---
Patient Follow-up (Call Back) - Post ED Follow - Up Condition at time of discharge: Stable Disposition at time of original discharge: HOME Reason for Call Back: Abnwl. Microbiology (Patient's urine culture shows lactobacillus species and staphylococcal coagulase-negative. Final report and sensitivity has not resulted.)
--- NOTE | 2017-08-30 11:23 | PDOC ---
Patient Follow-up (Call Back) - Post ED Follow - Up Condition at time of discharge: Stable Disposition at time of original discharge: HOME Reason for Call Back: Abnwl. Microbiology (+lactomacillic and rothia species on ux, no further w/u required per lab pt on bactrim for uti (of note no gc/chlam sent) Spoke to pt, completed abx and denies dysuria, penile discharge or testicular pain/swelling but states he sustained a wound recently, was seen in ED w/ neg Xray and states he is having intemrittent fevers now, told to return to ED immediately)
== END 2017-08-21 01:27 | disposition home or self-care (01) ==
LOC: JER 19:33
PROC: 3E033NZ Introduction of Analgesics, Hypnotics, Sedatives into Peripheral Vein, Percutaneous Approach (ICD-10-PCS; principal; 2017-08-20)
DX: N39.0 Urinary tract infection, site not specified (principal); T81.33XA Disruption of traumatic injury wound repair, initial encounter; W11.XXXA Fall on and from ladder, initial encounter; Y93.89 Activity, other specified; Y92.89 Other specified places as the place of occurrence of the external cause; Y99.8 Other external cause status; Z88.8 Allergy status to other drugs, medicaments and biological substances
CPT/HCPCS: 36415; 70450-TC; 72125-TC; 76775-TC; 80053; 81003; 81015; 85025; 85610; 85730; 86850; 86900; 86901; 87077; 87086; 96374; 99282-25

== ENCOUNTER 2017-11-14 15:40 | Emergency (ER) | payer OTHER ==
--- NOTE | 2017-11-14 15:52 | PDOC ---
History of Present Illness - General Chief Complaint: Injury Stated Complaint: FALL, LT FOOT (12 FEET) Time Seen by Provider: 11/14/17 15:51 - History of Present Illness Initial Comments: 11/14/17 15:54 Mr. Sheehan is a 27 yo male w/ pmh of shoulder dislocations, anxiety, reported PE 's in the past and left foot skin graft s/p trauma from playing ice hockey (ice skate injury) with subsequent achilles rupture who presents after fall. Patient reports he slipped down a hole (from construction) in his 2nd floor apt and fell onto first floor. He is currently complaining of buttocks pain where he fell. Patient is currently in external fixation device for left foot where he had foot re-attached after previously mentioned ice skate almost amputated his foot. The patient denies chest pain, shortness of breath, headache and dizziness. Denies fever, chills, nausea, vomit, diarrhea and constipation. Denies dysuria, frequency, urgency and hematuria. Allergies: Tylenol, toradol, NSAIDs, penicillin Past History - Past Medical History Allergies/Adverse Reactions: Allergies Allergy/AdvReac Type Severity Reaction Status Date / Time acetaminophen Allergy Verified 11/14/17 15:49 ketorolac tromethamine Allergy Hives Verified 11/14/17 15:49 [From Toradol] NSAIDS (Non-Steroidal Allergy Hives Verified 11/14/17 15:49 Anti-Inflamma Penicillins Allergy Verified 11/14/17 15:49 Home Medications: Ambulatory Orders Sertraline HCl [Zoloft] 100 mg PO DAILY 05/06/17 Sulfamethoxazole/Trimethoprim [Bactrim Ds -] 1 tab PO BID #20 tablet 08/21/17 COPD: No - Immunization History Immunization Up to Date: Yes - Suicide/Smoking/Psychosocial Hx Smoking History: Never smoked Have you smoked in the past 12 months: No Hx Alcohol Use: No Drug/Substance Use Hx: No Substance Use Type: None Review of Systems - Review of Systems Comments:: 11/14/17 17:24 GENERAL/CONSTITUTIONAL: No fever or chills. No weakness. HEAD, EYES, EARS, NOSE AND THROAT: No change in vision. No ear pain or discharge. No sore throat. CARDIOVASCULAR: No chest pain or shortness of breath RESPIRATORY: No cough, wheezing, or hemoptysis. GASTROINTESTINAL: No nausea, vomiting, diarrhea or constipation. GENITOURINARY: No dysuria, frequency, or change in urination. MUSCULOSKELETAL: +Pain to buttocks (fell into sitting position) SKIN: No rash NEUROLOGIC: No headache, vertigo, loss of consciousness, or change in strength/ sensation. ENDOCRINE: No increased thirst. No abnormal weight change HEMATOLOGIC/LYMPHATIC: No anemia, easy bleeding, or history of blood clots. ALLERGIC/IMMUNOLOGIC: No hives or skin allergy. *Physical Exam - Physical Exam Comments: 11/14/17 17:25 GENERAL: Awake, alert, and fully oriented, in no acute distress HEAD: No signs of trauma, normocephalic, atraumatic EYES: PERRLA, EOMI, sclera anicteric, conjunctiva clear ENT: Auricles normal inspection, hearing grossly normal, nares patent, oropharynx clear without exudates. Moist mucosa NECK: Normal ROM, supple, no lymphadenopathy, JVD, or masses LUNGS: No distress, speaks full sentences, clear to auscultation bilaterally HEART: Regular rate and rhythm, normal S1 and S2, no murmurs, rubs or gallops, peripheral pulses normal and equal bilaterally. ABDOMEN: Soft, nontender, normoactive bowel sounds. No guarding, no rebound. No masses EXTREMITIES: +Left foot in external fixation device with poorly healed skin graft. +T spine tenderness to palpation. Patient currently bleeding from poorly healed graft site. NEUROLOGICAL: Cranial nerves II through XII grossly intact. Normal speech, no focal sensorimotor deficits SKIN: Warm, Dry, normal turgor, no rashes or lesions noted. ED Treatment Course - LABORATORY CBC & Chemistry Diagram: 11/14/17 17:00 11/14/17 17:00 Medical Decision Making - Medical Decision Making 11/14/17 17:26 Mr. Sheehan is a 27 yo male w/ pmh as described who presents after reported fall earlier today. 11/14/17 17:40 Trauma workup started as patient mechanism impressive. Patient alert and oriented, however elected to sign out AMA as he does not want to be in ER any further. Risks of signing out explained however patient elected to continue leaving. Patient's foot wrapped in sterile dressing. Patient signed out AMA. *DC/Admit/Observation/Transfer Diagnosis at time of Disposition: Fall Qualifiers: Encounter type: initial encounter Qualified Code(s): W19.XXXA - Unspecified fall, initial encounter - Discharge Dispostion Disposition: AGAINST MEDICAL ADVICE - Referrals - Patient Instructions Printed Discharge Instructions: How to Prevent Falls, DI for Wound Infection Additional Instructions: You have elected to sign out from the ER today against medical advice. Follow- up with foot surgeon as soon as possible for re-evaluation. Keep wound clean and dry. Return to ER immediately if any increased pain, discharge from wound, fever, chills, tingling, altered mental status or other concerning symptoms. - Post Discharge Activity
[2017-11-14 15:57] VITALS: BP 124/81; PULSE 118; TEMP 99.8; BMI 19.8
[2017-11-14] MEDS ORDERED: SODIUM CHLORIDE 1,000 ML IV STA (16:05)
[2017-11-14] MEDS ORDERED: morphine CARPU-JECT 2 MG/1 ML DISP.SYRIN IVPUSH ONE (16:05)
[2017-11-14] MEDS ORDERED: MORPHINE SULFATE 2 MG/ML VIAL ONE (16:51)
--- NOTE | 2017-11-14 17:22 | PDOC ---
Attending Attestation - HPI HPI: 11/14/17 17:38 The patient is a 27-year-old male, with a past medical history of right shoulder dislocations, anxiety, who presents to the ED s/p mechanical fall today. The patient reports that he ruptured his left achilles tendon 5-weeks ago and underwent surgery for repair s/p left foot skin graft. He states that he fell down the stairs (12 feet) while using his crutches today and landed on his buttock. He denies any loss of consciousness or head trauma. The patient is taking care of his left foot wound on his own and has been applying xeroform. The patient denies having any other injuries. Denies chest pain, shortness of breath, headache, or dizziness. Denies fevers, chills, nausea, vomiting, diarrhea, constipation or abdominal pain. Denies dysuria, frequency, urgency, or hesitancy. Allergies: Acetaminophen, Ketorolac tromethamine, and Penicillins. Past surgical history: Left achilles tendon repair, Right shoulder dislocation. Social history: None reported. - Physicial Exam PE: 11/14/17 17:41 Vitals: Triage Vital signs reviewed General Appearance: no acute distress, well nourished well developed, Head: Atraumatic, normocephalic Eyes: Pupils equal reactive round, extraocular movement intact Neck: Supple;No Nuchal rigidity Chest Wall: Nontender Cardiac: Regular rate and rhythm, no murmurs, no rubs, no gallops, Lungs: Clear to auscultation bilateral, good air movement bilaterally, Abdomen: Soft, nondistended, normal bowel sounds, nontender to palpation Rectal: Exam deferred Extremities:(+)Externally fixed left lower extremity with a open wound to the lateral malleolus with a skin graft placed above it. No cyanosis, clubbing, or edema MSK: (+)Very mild lower back tenderness Skin: Warm and dry. Neuro: AOX3; Cranial Nerves 2-12 grossly c intact Psych: normal mood, normal affect - Medical Decision Making 11/14/17 17:41 The patient is a 27-year-old male, with a past medical history of right shoulder dislocations, anxiety, who presents to the ED s/p mechanical fall today. The patient reports that he ruptured his left achilles tendon 5-weeks ago and underwent surgery for repair s/p left foot skin graft. He states that he fell down the stairs (12 feet) while using his crutches today and landed on his buttock. He denies any loss of consciousness or head trauma. The patient is taking care of his left foot wound on his own and has been applying xeroform. <Amira Nicolas - Last Filed: 11/14/17 17:38> - Resident Resident Name: Avinash Duenas - ED Attending Attestation I have performed the following: I have examined & evaluated the patient, The case was reviewed & discussed with the resident, I agree w/resident's findings & plan, Exceptions are as noted - Medical Decision Making Patient presents to the ED with questionable story of fall from height although no obvious acute injuries noted Patient has a external patient denied vice around his left ankle status post a surgery for Achilles tendon repair and skin graft. There is no dressing in place but it does not appear infected. Patient repeatedly asking for pain medication. He is known to staff and I have care for this patient before with drug-seeking behavior. I have performed a thorough search and I stop patient has had greater than 20 prescriptions in the last several months by different providers After only be given 2 mg of morphine patient refused to stay in the emergency department for further evaluation The patient is presenting with Possible fall. I am concerned that this may be injuries 2/2 to this The patient has verbalized understanding of my concerns. The patient is clinically sober and appears free from distracting injury. The patient appears to have intact insight, judgment, and reason. In my opinion, this patient has the capacity to make decisions The risks of leaving against medical advice without further evaluation treatment were discussed with the patient. These risks include [ , permanant disability. The patient indicated understanding of these risks and appeared to have the capacity to make this decision. The patient is unwilling to stay for a imaging , patient is unwilling to remain for additional monitoring. He is refusing further care and leaving against medical advice I'm unable to convince the patient to stay. I have asked the patient to return as soon as possible to complete his/her evaluation. <Iftikhar Villalobos - Last Filed: 11/14/17 19:25> Attestations - Attestations 11/14/17 17:45 Documentation prepared by Amira Nicolas, acting as medical genetics director for Iftikhar Villalobos MD. <Amira Nicolas - Last Filed: 11/14/17 17:38>
[2017-11-14 17:36] LABS: BASO % 0.6 % (0-2.0); EOS % 0.5 % (0-4.5); HEMATOCRIT 26.9 % (35.4-49); HEMOGLOBIN 8.5 GM/dL (11.7-16.9); LYMPH % 19.1 % (8-40); MCH 24.6 pg (25.7-33.7); MCHC 31.8 g/dl (32.0-35.9); MEAN CELL VOLUME 77.4 fl (80-96); MEAN PLT VOLUME 8.6 fl (7.5-11.1); MONO % 6.1 % (3.8-10.2); NEUT % 73.7 % (42.8-82.8); PLATELET COUNT 406 K/MM3 (134-434); RBC 3.47 M/mm3 (4.00-5.60); RDW 15.5 % (11.9-15.9)
[2017-11-14 18:20] LABS: ALBUMIN 3.8 g/dl (3.4-5.0); ANION GAP 9 (8-16); BLOOD UREA NITROGEN 21 mg/dL (7-18); CALCIUM 8.8 mg/dL (8.5-10.1); CHLORIDE 110 mmol/L (98-107); CO2 23 mmol/L (21-32); CREATININE 0.7 mg/dL (0.7-1.3); GLUCOSE,RANDOM 103 mg/dL (74-106); SGPT/ALT 20 U/L (12-78); SODIUM 142 mmol/L (136-145)
[2017-11-14 18:22] LABS: INR 1.29 (0.82-1.09); PROTHROMBIN TIME (PATIENT) 14.6 SEC (9.7-13.0)
[2017-11-14 18:23] LABS: ALK PHOS 107 U/L (45-117); BILIRUBIN,TOTAL 0.3 mg/dL (0.2-1.0); TOT PROT 8.1 g/dl (6.4-8.2)
[2017-11-14 18:25] LABS: ACTIVATED PTT 28.9 SECONDS (25.2-36.5); POTASSIUM 4.2 mmol/L (3.5-5.1); SGOT/AST 27 U/L (15-37)
== END 2017-11-14 18:06 | disposition left against medical advice (07) ==
LOC: JER 15:40
PROC: 3E033NZ Introduction of Analgesics, Hypnotics, Sedatives into Peripheral Vein, Percutaneous Approach (ICD-10-PCS; principal; 2017-11-14)
DX: M54.6 Pain in thoracic spine (principal); S39.82XA Other specified injuries of lower back, initial encounter; W10.8XXA Fall (on) (from) other stairs and steps, initial encounter; Z91.81 History of falling; Y93.01 Activity, walking, marching and hiking; Y92.018 Other place in single-family (private) house as the place of occurrence of the external cause; Z98.890 Other specified postprocedural states
CPT/HCPCS: 36415; 80053; 83605; 85025; 85610; 85730; 99281-25; J7030

== ENCOUNTER 2018-02-13 15:18 | Emergency (ER) | payer OTHER ==
[2018-02-13 15:25] VITALS: TEMP 99.6; BMI 21.1
[2018-02-13] MEDS ORDERED: ONDANSETRON *ODT* 4 MG TABLET SL ONE (15:25)
--- NOTE | 2018-02-13 15:25 | PDOC ---
Rapid Medical Evaluation Time Seen by Provider: 02/13/18 15:20 Medical Evaluation: Allergies Allergy/AdvReac Type Severity Reaction Status Date / Time acetaminophen Allergy Verified 02/13/18 15:20 ketorolac tromethamine Allergy Hives Verified 02/13/18 15:20 [From Toradol] NSAIDS (Non-Steroidal Allergy Hives Verified 02/13/18 15:20 Anti-Inflamma Penicillins Allergy Verified 02/13/18 15:20 I have performed a brief in-person evaluation of this patient. The patient presents with a chief complaint of: ruptured achilles tendon. Patient playing roller hockey, was hit in the back of his left foot Pertinent physical exam findings: cannot dorsiflex left foot. large abrasion with active bleeding and visible deformity to left achilles area. I have ordered the following: IV insert, labs, CT scan lower extremity. TETANUS IS UTD The patient will proceed to the ED for further evaluation Discharge Disposition - Diagnosis Achilles rupture, left Qualifiers: Encounter type: initial encounter Qualified Code(s): S86.012A - Strain of left Achilles tendon, initial encounter - Referrals - Patient Instructions - Post Discharge Activity
[2018-02-13] MEDS ORDERED: ONDANSETRON 8 MG TABLET (FP) PO ONE (15:55)
[2018-02-13] MEDS ORDERED: morphine CARPU-JECT 4 MG/1 ML DISP.SYRIN IVPUSH ONE (16:26)
[2018-02-13] MEDS ORDERED: SODIUM CHLORIDE 0.9% 1000 ML INFUS.BAG IV ONE (16:26)
--- NOTE | 2018-02-13 16:26 | PDOC ---
Attending Attestation - Resident Resident Name: NarayanDantePetr - ED Attending Attestation I have performed the following: I have examined & evaluated the patient, The case was reviewed & discussed with the resident, I agree w/resident's findings & plan, Exceptions are as noted - HPI HPI: 02/13/18 16:36 28yo male presents to the ED for eval of L ankle injury. Pt was playing roller hockey when his friends skate went into his L achilles. Pt with prior achilles rupture 3 years ago requiring surgical repair and skin grafting from playing hockey. Pt at the time was taking cipro. Pt with healing wound to anterior tib recently treated at [place] with clindamycin from a hockey injury. Pt with difficulty and pain with dorsiflexion and plantar flexion. Sensation intact distal. Tetanus UTD - last updated in October. - Physicial Exam PE: 02/13/18 16:39 Gen: AAOx3, anxious Heart: +s1s2 tachy Lungs: cta b/l Abd: soft, nt/nd +bs ext: laceration without active bleeding to L posterior achilles region with hematoma under skin, pedal pulses intact, swelling to site, difficulty with dorsiflexion and plantar flexion, able to wiggle toes, sensation intact - Medical Decision Making 02/13/18 16:26 I, Dr. Jaqui Velasquez, DO, attest that this document has been prepared under my direction and personally reviewed by me in its entirety. I further attest, that it accurately reflects all work, treatment, procedures and medical decision -making performed by me. 02/13/18 16:43 a/p: 28yo male with L ankle injury with skate to the posterior ankle with deformity to the achilles -given prior repair to the achilles concern for repeat injury to the achilles -tetanus utd -pt on coumadin for prior PE -pt denies all other injuries -pt with allergy to toradol, nsaids, tylenol -will give morphine for pain, labs -ct ankle -will monitor and reassess 02/13/18 21:09 pt with poss achilles tendon tear and deformity on ct call placed to orthopedics Discharge Disposition - Diagnosis Achilles rupture, left Qualifiers: Encounter type: initial encounter Qualified Code(s): S86.012A - Strain of left Achilles tendon, initial encounter - Discharge Dispostion Disposition: HOME Condition at time of disposition: Stable Decision to Admit order: No - Prescriptions Prescriptions: Oxycodone HCl/Acetaminophen [Percocet 5-325 mg Tablet] 1 tab PO Q6H PRN #12 tablet MDD 4 tabs per day PRN Reason: Pain - Referrals Referrals: Obi Tyson MD [Staff Physician] - - Patient Instructions - Post Discharge Activity
[2018-02-13 16:27] LABS: INR 1.14 (0.83-1.09); PROTHROMBIN TIME (PATIENT) 12.9 SEC (9.7-13.0)
[2018-02-13] MEDS ORDERED: morphine SULFATE 4 MG/ML VIAL ONE (16:30)
[2018-02-13 16:38] LABS: BASO % 0.9 % (0-2.0); EOS % 3.9 % (0-4.5); HEMATOCRIT 29.6 % (35.4-49); HEMOGLOBIN 9.1 GM/dL (11.7-16.9); MCH 21.6 pg (25.7-33.7); MCHC 30.8 g/dl (32.0-35.9); MEAN PLT VOLUME 8.9 fl (7.5-11.1); MONO % 7.2 % (3.8-10.2); PLATELET COUNT 305 K/MM3 (134-434); RBC 4.23 M/mm3 (4.00-5.60); RDW 19.5 % (11.9-15.9); WHITE BLOOD COUNT 3.3 K/mm3 (4.0-10.0)
--- NOTE | 2018-02-13 16:41 | PDOC ---
History of Present Illness - General Chief Complaint: Injury Stated Complaint: INJURY TO ANKLE Time Seen by Provider: 02/13/18 15:20 - History of Present Illness Initial Comments: 02/13/18 16:23 28 yo M with h/o left sided achilles rupture (2014), with surgical and graft repair ([facility]), anxiety, PE ( on Coumadin), who p/w left ankle injury. Patient reports playing hockey with friend and his friend hit his left sided posterior ankle with "roller blade," with subsequent laceration in ankle and bleeding 1 hour [employer]. Patient drove himself to hospital, and was able to ambulate with limping gait following injury .Denies removal of foreign body. Now with pain in posterior left ankle and numbness in heel. Has h/o left achilles rupture (2014), was on Ciporflaxacin at that time. Recently completed course of Clindamycin for recent anterior left sided tibial laceration (3 months ago, required 52 sutures per patient). Last tetanus 10/2017. Patient denies head/neck trauma, LOC, N/V, F/C, cough, CP, SOB, urinary complaints, abdominal pain, diarrhea, constipation, lightheadedness, weakness. PMHx: as noted above ROS: as noted SHx: Denies IVDA. Allergies: Toradol/NSAIDS-Hives, PCN-Hives. Past History - Past Medical History Allergies/Adverse Reactions: Allergies Allergy/AdvReac Type Severity Reaction Status Date / Time acetaminophen Allergy Verified 02/13/18 15:20 ketorolac tromethamine Allergy Hives Verified 02/13/18 15:20 [From Toradol] NSAIDS (Non-Steroidal Allergy Hives Verified 02/13/18 15:20 Anti-Inflamma Penicillins Allergy Verified 02/13/18 15:20 Home Medications: Ambulatory Orders Sertraline HCl [Zoloft] 100 mg PO DAILY 05/06/17 Sulfamethoxazole/Trimethoprim [Bactrim Ds -] 1 tab PO BID #20 tablet 08/21/17 Oxycodone HCl/Acetaminophen [Percocet 5-325 mg Tablet] 1 tab PO Q6H PRN #12 tablet MDD 4 tabs per day 02/13/18 COPD: No DVT: No Psychiatric Problems: Yes (anxeiyt) - Immunization History Immunization Up to Date: Yes - Suicide/Smoking/Psychosocial Hx Smoking History: Never smoked Have you smoked in the past 12 months: No Information on smoking cessation initiated: No Hx Alcohol Use: No Drug/Substance Use Hx: No Substance Use Type: None Review of Systems - Review of Systems Comments:: 02/13/18 16:23 GENERAL/CONSTITUTIONAL: No fever or chills. No weakness. HEAD, EYES, EARS, NOSE AND THROAT: No change in vision. No ear pain or discharge. No sore throat. CARDIOVASCULAR: No chest pain or shortness of breath RESPIRATORY: No cough, wheezing, or hemoptysis. GASTROINTESTINAL: No nausea, vomiting, diarrhea or constipation. GENITOURINARY: No dysuria, frequency, or change in urination. MUSCULOSKELETAL: + left sided ankle pain. No neck or back pain. SKIN: No rash NEUROLOGIC: No headache, vertigo, loss of consciousness, or change in strength/ sensation. ENDOCRINE: No increased thirst. No abnormal weight change HEMATOLOGIC/LYMPHATIC: No anemia, easy bleeding, or history of blood clots. ALLERGIC/IMMUNOLOGIC: No hives or skin allergy. *Physical Exam - Vital Signs Last Vital Signs Temp Pulse Resp BP Pulse Ox 99.6 F 126 H 20 127/83 100 02/13/18 15:20 02/13/18 15:20 02/13/18 15:20 02/13/18 15:20 02/13/18 15:20 - Physical Exam Comments: 02/13/18 16:24 GENERAL: Awake, alert, and fully oriented, in no acute distress HEAD: No signs of trauma, normocephalic, atraumatic EYES: PERRLA, EOMI, sclera anicteric, conjunctiva clear ENT: Hearing grossly normal, nares patent, oropharynx clear without exudates. Moist mucosa NECK: Normal ROM, supple, no lymphadenopathy, JVD, or masses LUNGS: No distress, speaks full sentences, clear to auscultation bilaterally HEART: Regular rate and rhythm, normal S1 and S2, no murmurs, rubs or gallops, peripheral pulses normal and equal bilaterally. EXTREMITIES : LLE with posterior Achilles hemaotma (2 x 2cm) and inferior horziontal laceration, with absent bony or tendinous involvement visualized. No apparent foreign body, or nailbed involvement. RLE Normal inspection, Normal range of motion, no edema. No clubbing or cyanosis. SKIN: Warm, Dry, normal turgor, no rashes or lesions noted ED Treatment Course - LABORATORY CBC & Chemistry Diagram: 02/13/18 15:45 02/13/18 15:45 - Medications Given in the ED: ED Medications Discontinued Medications Generic Name Dose Route Start Last Admin Trade Name Freq PRN Reason Stop Dose Admin Ondansetron HCl 8 mg 02/13/18 15:25 02/13/18 15:54 Zofran Odt - SL 02/13/18 15:26 8 mg ONCE ONE Administration Medical Decision Making - Medical Decision Making 02/13/18 16:51 28 yo M with h/o left sided Achilles rupture (2014), with surgical and graft repair ([facility]), anxiety, PE ( on Coumadin), who p/w left ankle injury. HR 126, vitals otherwise wnl, A&Ox3. Left sided lower extremity neurovasculalry intact, with nml plantar, dorsal flexion, and posterior Achilles hematoma 2 x 2 cm. Adequate capillary refill, and perfusion to distal ext. BL PT, and DP pulses intact BL. R/o arterial injury. R/o fracture or dislocation. Will evaluate for tendinous or ligamentous injury. ED Course: CBC,CMP, PT/INR NS, Morphine CT Left Lower Ext. 02/13/18 18:32 WBC: 3.3 02/13/18 21:01 CT LLE: Impression: Deformity of the Achilles tendon just above the level of the ankle with significant surrounding edema and a small amount of fluid versus hematoma that may represent a tendon tear. Cannot rule out rupture. Correlation with MRI is recommended for further evaluation. Spoke to orthopedics sap ppm consultant Dr. Esparza. Recommends posterior splint, and follow up in clinic. Patient able to partial bear weight with crutches. Splint applied. Pt. pain controlled and stable for d/c with return precautions. *DC/Admit/Observation/Transfer Diagnosis at time of Disposition: Achilles rupture, left Qualifiers: Encounter type: initial encounter Qualified Code(s): S86.012A - Strain of left Achilles tendon, initial encounter - Discharge Dispostion Disposition: HOME Condition at time of disposition: Stable Decision to Admit order: No - Prescriptions Prescriptions: Oxycodone HCl/Acetaminophen [Percocet 5-325 mg Tablet] 1 tab PO Q6H PRN #12 tablet MDD 4 tabs per day PRN Reason: Pain - Referrals Referrals: Obi Tyson MD [Staff Physician] - - Patient Instructions Printed Discharge Instructions: DI for Achilles Tendon Rupture Additional Instructions: Please return to the emergency department with any new or worsening symptoms or concerns. Please follow up with your primary care physician within 72 hours. Please follow up with orthopedics within 72 hours. Ambulate with crutches and pain medication/percocet as instructed. - Post Discharge Activity - Attestations Physician Attestion: 02/13/18 22:29 I attest to the information provided in this note.
[2018-02-13 16:42] LABS: ALBUMIN 4.1 g/dl (3.4-5.0); ALK PHOS 146 U/L (45-117); ANION GAP 8 MMOL/L (8-16); BILIRUBIN,TOTAL 0.4 mg/dL (0.2-1); BLOOD UREA NITROGEN 21 mg/dL (7-18); CALCIUM 8.8 mg/dL (8.5-10.1); CHLORIDE 108 mmol/L (98-107); CO2 24 mmol/L (21-32); GLUCOSE,RANDOM 105 mg/dL (74-106); POTASSIUM 4.2 mmol/L (3.5-5.1); SGOT/AST 13 U/L (15-37); SGPT/ALT 15 U/L (13-61); SODIUM 140 mmol/L (136-145); TOT PROT 8.1 g/dl (6.4-8.2)
[2018-02-13 18:56] LABS: ANISOCYTOSIS 1+; MACROCYTOSIS 1+; OVALOCYTE 1+; PLATELET ESTIMATE ADEQUATE
[2018-02-13 22:29] VITALS: BP 118/82; PULSE 92
== END 2018-02-13 22:29 | disposition home or self-care (01) ==
LOC: JER 15:18
PROC: 3E033NZ Introduction of Analgesics, Hypnotics, Sedatives into Peripheral Vein, Percutaneous Approach (ICD-10-PCS; principal; 2018-02-13)
PROC: 2W3RX1Z Immobilization of Left Lower Leg using Splint (ICD-10-PCS; 2018-02-13)
DX: S86.112A Strain of other muscle(s) and tendon(s) of posterior muscle group at lower leg level, left leg, initial encounter (principal); S91.012A Laceration without foreign body, left ankle, initial encounter; W21.39XA Struck by other sports foot wear, initial encounter; Y93.69 Activity, other involving other sports and athletics played as a team or group; Y92.89 Other specified places as the place of occurrence of the external cause; Y99.8 Other external cause status; Z88.8 Allergy status to other drugs, medicaments and biological substances
CPT/HCPCS: 36415; 73700-TC-RT; 80053; 85025; 85610; 87040; 99282-25; J7030; Q0162